=== PATIENT | female | born 1975 ===

== ENCOUNTER 2024-10-12 06:40 | Day surgery (SDC) | payer OTHER ==
[2024-10-05 10:38] LABS: BASO % 0.5 % (0.1-1.2); EOS # 0.13 (0.04-0.54); EOS % 1.3 % (0.7-7.0); LYMPH # 2.40 (1.18-3.74); LYMPH % 24.4 % (19.3-53.1); MEAN PLATELET VOLUME 9.90 fl (9.4-12.4); MONO # 0.71 (0.24-0.82); MONO % 7.2 % (4.7-12.5); NEUT # 6.52 (1.56-6.13); NEUT % 66.3 % (34.0-71.1); RED CELL DISTRIBUTION WIDTH 12.8 % (11.6-14.4)
[2024-10-05 10:40] LABS: URINE APPEARANCE Clear; URINE BILIRRUBIN Negative (NEGATIVE); URINE BLOOD Negative; URINE COLOR Yellow; URINE GLUCOSE Negative (NEGATIVE); URINE KETONE Negative (NEGATIVE); URINE LEUKOCYTE Negative; URINE NITRATE Negative; URINE PROTEIN Negative (NEGATIVE); URINE UROBILINOGEN 0.2 E.U./dl
[2024-10-05 10:41] LABS: URINE BACTERIA 190.6 uL (0.0-1933); URINE EPITHELIAL CELLS 16.7 uL (0.0-38.8)
[2024-10-05 10:59] VITALS: BP 136/83
[2024-10-05 11:14] LABS: ALT/SGPT 26.0 U/L (12-78); AST/SGOT 10.0 U/L (15-37); BILIRUBIN TOTAL 0.4 mg/dL (0.3-1.2); BUN CREA RATIO 14.0 (7.0-25.0); CREATININE SERUM 0.72 mg/dL (0.55-1.02); GFR 86.45; GLOBULINA 3.2 G/DL (2.4-3.5); GLUCOSE FASTING 126.0 mg/dL (65-100); OSMOLALITY SERUM 282.0 MOSM/KG (275-295)
[2024-10-05 11:28] LABS: INR 0.94
[2024-10-05 11:58] LABS: URINE CAST 0.00 uL (0.0-1.40); URINE RBC 1.6 uL (0.0-20.8); URINE WBC 1.5 uL (0.0-23.2)
[~2024-10-12] VITALS: Ht 149.9 cm; Wt 104.3 kg
[~2024-10-12 06:40] MED LIST: GLIMEPIRIDE2 MG; METFORMIN HCL1000 M2 PO; TOPAMAX25 MG PO; VITAMIN D310 MCG/1 M; XIGDUO XR 5 MG1 EAC1 PO; ZOCOR20 MG
[2024-10-12] MEDS ORDERED: MORPHINE SULFATE 4 MG/ML VIAL IV ONE ×3 (13:55→15:00)
[2024-10-12] MEDS ORDERED: SUGAMMADEX SODIUM 200 MG/2 ML VIAL IV ONE (14:00)
[2024-10-12] MEDS ORDERED: CLINDAMYCIN PHOSPHATE 150 MG/ML (900mg) IV SCH (14:00)
== END 2024-10-12 16:00 | disposition home or self-care (01) ==
LOC: CIR.AMB 06:40
PROVIDERS: ATTEND Orthopaedic Surgery Hand Surgery
DX: S63.591A Other specified sprain of right wrist, initial encounter (principal); Z91.013 Allergy to seafood; Z88.2 Allergy status to sulfonamides; Z88.0 Allergy status to penicillin; Z88.6 Allergy status to analgesic agent